=== PATIENT | female | born 1945 | race Caucasian/White ===

== ENCOUNTER 2019-08-06 14:02 | Outpatient (RCR) | payer MEDICARE, OTHER, SELFPAY | END 2019-09-04 00:01 | LOC: SPT 14:02 | PROVIDERS: Family Provider Family Medicine; Visit Provider Orthopaedic Surgery | DX: Z47.1 Aftercare following joint replacement surgery (principal); Z96.651 Presence of right artificial knee joint; M25.561 Pain in right knee; M25.661 Stiffness of right knee, not elsewhere classified | CPT/HCPCS: 97110 ×7; 97161 ==

== ENCOUNTER 2019-09-05 06:00 | Outpatient (RCR) | payer MEDICARE, OTHER, SELFPAY | END 2019-09-06 23:00 | disposition home or self-care (01) | LOC: SPT 06:00 | PROVIDERS: Family Provider Family Medicine; PCP Family Medicine; Visit Provider Orthopaedic Surgery | DX: Z47.1 Aftercare following joint replacement surgery (principal); Z96.651 Presence of right artificial knee joint | CPT/HCPCS: 97110 ==

== ENCOUNTER → 2019-11-15 11:38 | Outpatient (BNVA) | payer MEDICARE, OTHER, SELFPAY | PROVIDERS: Family Provider Family Medicine; PCP Family Medicine; Visit Provider Orthopaedic Surgery | DX: M81.0 Age-related osteoporosis without current pathological fracture (principal); M47.816 Spondylosis without myelopathy or radiculopathy, lumbar region; M43.5X7 Other recurrent vertebral dislocation, lumbosacral region | CPT/HCPCS: 72100 ==

== ENCOUNTER 2019-11-26 12:27 | Outpatient (CLI) | payer MEDICARE, OTHER, SELFPAY ==
--- NOTE | 2019-11-26 13:00 | MR_ITS ---
WS: [id number] MRI LUMBAR SPINE NONCONTRAST TECHNIQUE: Sagittal T1, T2 and STIR imaging. Axial T1 and T2 imaging. CLINICAL INFORMATION: lumbar radiculopathy COMPARISON: None. FINDINGS: Mild lumbar curve. No acute compression. Grade 1 anterolisthesis L5 on S1 measuring 8 mm chronic spon dylolysis. Mild disc bulging lower thoracic spine. L1-L2: Mild disc bulging with slight effacement of ventral thecal sac. Mild facet arthropathy. Mild c entral canal stenosis. Mild right and no significant left foraminal narrowing. L2-L3: Disc osteophyte complex with endplate ridging. Moderate central canal stenosis. Moderate facet arthropathy. Moderate to severe bilateral bony foraminal narrowing. L3-L4: Mild disc bulging with osteophytic ridging. Moderate to severe central canal stenosis. Advance d facet arthropathy. Edema in the facets. Moderate left and mild right foraminal narrowing. L4-L5: Disc osteophyte complex endplate ridging. Moderate central canal stenosis. Impingement on the subarticular recess bilaterally. Moderate bilateral foraminal narrowing. Moderate to advanced facet a rthropathy. L5-S1: Grade 1 anterolisthesis L5 on S1 measuring 8 mm with chronic spondylolysis. Impingement on the right S1 nerve root. Mild to moderate central canal stenosis. Moderate to severe bilateral foraminal narrowing. Visualized pelvic bony structures: Normal. Paravertebral soft tissues: Normal. MR/MR lumbar spine wo con* [id number] IMPRESSION: 1. Grade 1 anterolisthesis L5 on S1 with chronic spondylolysis. Moderate to se lluvia bilateral foraminal narrowing at this level. 2. Moderate central canal stenosis L2-L3 and in moderate to severe L3-L4 due t o disc osteophyte complexes with moderate to advanced facet arthropathy. 3. Moderate central canal stenosis L4-5 with impingement on the subarticular r ecess bilaterally 4. Multilevel bony foraminal narrowing worse at left L3-4, bilateral L4-5, and bilateral L5-S1. 5. Advanced facet arthropathy L3-4 and L4-L5.
== END 2019-11-26 12:28 | disposition home or self-care (01) ==
LOC: RADSHAW 12:30
PROVIDERS: Family Provider Family Medicine; PCP Family Medicine; Visit Provider Orthopaedic Surgery
DX: M54.16 Radiculopathy, lumbar region (principal); M48.07 Spinal stenosis, lumbosacral region; M48.061 Spinal stenosis, lumbar region without neurogenic claudication
CPT/HCPCS: 72148

== ENCOUNTER → 2022-03-29 09:04 | Outpatient (BNVA) | payer MEDICARE, OTHER, SELFPAY | PROVIDERS: Family Provider Family Medicine; PCP Family Medicine; Visit Provider Family Medicine | DX: J32.9 Chronic sinusitis, unspecified (principal); E11.9 Type 2 diabetes mellitus without complications; I10 Essential (primary) hypertension | CPT/HCPCS: 80053; 80061; 83036 ==

== ENCOUNTER → 2022-07-01 10:24 | Outpatient (BNVA) | payer MEDICARE, OTHER, SELFPAY | PROVIDERS: Family Provider Family Medicine; PCP Family Medicine; Visit Provider Family Medicine | DX: I10 Essential (primary) hypertension (principal); E11.9 Type 2 diabetes mellitus without complications; E78.5 Hyperlipidemia, unspecified | CPT/HCPCS: 80053; 80061; 83036 ==

== ENCOUNTER → 2022-10-11 09:21 | Outpatient (BNVA) | payer MEDICARE, SELFPAY | PROVIDERS: Family Provider Family Medicine; PCP Family Medicine; Visit Provider Family Medicine | DX: E11.9 Type 2 diabetes mellitus without complications (principal); E78.5 Hyperlipidemia, unspecified; I10 Essential (primary) hypertension | CPT/HCPCS: 80053; 80061; 83036 ==

== ENCOUNTER → 2023-01-06 09:27 | Outpatient (BNVA) | payer MEDICARE, SELFPAY | PROVIDERS: Family Provider Family Medicine; PCP Family Medicine; Visit Provider Family Medicine | DX: E78.5 Hyperlipidemia, unspecified (principal); I10 Essential (primary) hypertension; E11.9 Type 2 diabetes mellitus without complications | CPT/HCPCS: 80053; 80061; 83036 ==

== ENCOUNTER → 2023-01-13 09:19 | Outpatient (BNVA) | payer MEDICARE, SELFPAY | PROVIDERS: Family Provider Family Medicine; PCP Family Medicine; Visit Provider Family Medicine | DX: E11.9 Type 2 diabetes mellitus without complications (principal); E78.5 Hyperlipidemia, unspecified; I10 Essential (primary) hypertension | CPT/HCPCS: 80061; 83036; 83721 ==

== ENCOUNTER → 2023-04-11 16:06 | Outpatient (BNVA) | payer MEDICARE, SELFPAY | PROVIDERS: Family Provider Family Medicine; PCP Family Medicine; Visit Provider Family Medicine | DX: E78.5 Hyperlipidemia, unspecified (principal); I10 Essential (primary) hypertension; E11.9 Type 2 diabetes mellitus without complications | CPT/HCPCS: 80053; 80061; 83036 ==

== ENCOUNTER → 2023-07-01 08:19 | Outpatient (BNVA) | payer MEDICARE, SELFPAY | PROVIDERS: Family Provider Family Medicine; PCP Family Medicine; Visit Provider Family Medicine | DX: E11.9 Type 2 diabetes mellitus without complications (principal); E78.5 Hyperlipidemia, unspecified; I10 Essential (primary) hypertension | CPT/HCPCS: 80053; 80061; 83036 ==

== ENCOUNTER → 2023-10-17 08:27 | Outpatient (BNVA) | payer MEDICARE, SELFPAY | PROVIDERS: Family Provider Family Medicine; PCP Family Medicine; Visit Provider Family Medicine | DX: E78.5 Hyperlipidemia, unspecified (principal); I10 Essential (primary) hypertension; E11.9 Type 2 diabetes mellitus without complications | CPT/HCPCS: 83036 ==

== ENCOUNTER → 2023-10-21 10:27 | Outpatient (BNVA) | payer MEDICARE, SELFPAY | PROVIDERS: Family Provider Family Medicine; PCP Family Medicine; Visit Provider Internal Medicine | DX: E11.9 Type 2 diabetes mellitus without complications (principal); E78.2 Mixed hyperlipidemia; Z79.4 Long term (current) use of insulin; Z79.84 Long term (current) use of oral hypoglycemic drugs | CPT/HCPCS: 99204 ==

== ENCOUNTER → 2024-01-16 09:38 | Outpatient (BNVA) | payer MEDICARE, SELFPAY | PROVIDERS: Family Provider Family Medicine; PCP Family Medicine; Visit Provider Family Medicine | DX: E11.9 Type 2 diabetes mellitus without complications (principal); E78.2 Mixed hyperlipidemia | CPT/HCPCS: 80053; 80061; 82043; 83036 ==

== ENCOUNTER → 2024-01-18 11:25 | Outpatient (BNVA) | payer MEDICARE, SELFPAY | PROVIDERS: Family Provider Family Medicine; PCP Family Medicine; Visit Provider Internal Medicine | DX: E11.9 Type 2 diabetes mellitus without complications (principal); E78.2 Mixed hyperlipidemia; Z79.4 Long term (current) use of insulin; Z79.84 Long term (current) use of oral hypoglycemic drugs | CPT/HCPCS: 99214 ==

== ENCOUNTER → 2024-04-03 12:10 | Outpatient (BNVA) | payer MEDICARE, SELFPAY | PROVIDERS: Family Provider Family Medicine; PCP Family Medicine; Visit Provider Internal Medicine | DX: E11.9 Type 2 diabetes mellitus without complications (principal); E78.2 Mixed hyperlipidemia; Z79.4 Long term (current) use of insulin | CPT/HCPCS: 99214 ==

== ENCOUNTER → 2024-07-25 10:00 | Outpatient (BNVA) | payer MEDICARE, SELFPAY | PROVIDERS: Family Provider Family Medicine; PCP Family Medicine; Visit Provider Family Medicine | DX: E11.9 Type 2 diabetes mellitus without complications (principal); E78.2 Mixed hyperlipidemia | CPT/HCPCS: 80053; 80061; 82043; 83036 ==

== ENCOUNTER → 2024-08-03 11:28 | Outpatient (BNVA) | payer MEDICARE, SELFPAY | PROVIDERS: Family Provider Family Medicine; PCP Family Medicine; Visit Provider Internal Medicine | DX: E11.9 Type 2 diabetes mellitus without complications (principal); E78.2 Mixed hyperlipidemia; Z79.4 Long term (current) use of insulin | CPT/HCPCS: 99214 ==

== ENCOUNTER → 2024-10-22 09:12 | Outpatient (BNVA) | payer MEDICARE, SELFPAY | PROVIDERS: Family Provider Family Medicine; PCP Family Medicine; Visit Provider Family Medicine | DX: E11.9 Type 2 diabetes mellitus without complications (principal) | CPT/HCPCS: 80053; 80061; 82043; 83036 ==

== ENCOUNTER → 2024-10-30 10:25 | Outpatient (BNVA) | payer MEDICARE, SELFPAY | PROVIDERS: Family Provider Family Medicine; PCP Family Medicine; Visit Provider Internal Medicine | DX: E11.9 Type 2 diabetes mellitus without complications (principal); E78.2 Mixed hyperlipidemia | CPT/HCPCS: 99214 ==

== ENCOUNTER → 2025-01-23 08:57 | Outpatient (BNVA) | payer MEDICARE, SELFPAY | PROVIDERS: Family Provider Family Medicine; PCP Family Medicine; Visit Provider Family Medicine | DX: E11.9 Type 2 diabetes mellitus without complications (principal) | CPT/HCPCS: 80053; 80061; 82043; 83036 ==

== ENCOUNTER → 2025-01-29 09:30 | Outpatient (BNVA) | payer MEDICARE, SELFPAY | PROVIDERS: Family Provider Family Medicine; PCP Family Medicine; Visit Provider Internal Medicine | DX: E11.9 Type 2 diabetes mellitus without complications (principal); E78.2 Mixed hyperlipidemia | CPT/HCPCS: 99214 ==

== ENCOUNTER 2025-04-21 01:14 | Emergency (ER) | payer MEDICARE, SELFPAY ==
[2025-04-21 01:18] VITALS: BP 138/61; PULSE 75; RESP 18; TEMP 39.5; O2SAT 91; BMI 29.2
--- OUTSIDE RECORDS SUMMARY | 2025-04-21 01:24 | XMS_ITS | Encounter Summary ---
Author Organization [facility] Address [address] [place] [address] Care Team Providers Care Rhythmic Gymnastics Coach Name Role Phone Unavailable Primary Care Provider Unavailabl e Encounter Details Date Type Department Care Team (Latest Contact Info) Description 09/13/2002 Outpatient Historical [facility] [address] [facility] [address] [place] [address] Sho Thayer MD NO ADDRESS ON FILE LUMP OR MASS IN BREAST (Primary Dx) Social History Tobacco Use Types Packs/Day Years Used Date Smoking Tobacco: Never Assessed Comments Unknown Sex and Gender Information Value Date Recorded Sex Assigned at Not on file 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
--- OUTSIDE RECORDS SUMMARY | 2025-04-21 01:24 | XMS_ITS | Encounter Summary ---
Author Organization [facility] Address [address] [place] [address] Care Team Providers Care Doll Eye Setter Name Role Phone Unavailable Primary Care Provider Unavailabl e Encounter Details Date Type Department Care Team (Late st Contact Info) Description 05/07/1999 Outpatient Historical [facility] [address] [facility] [address] [place] [address] Bhakti Bradford MD NO ADDRESS ON FILE Family history of malignant neoplasm of breast (Primary Dx) Social History Tobacco Use Types Packs/Day Years Used Date Smoking Tobacco: Never Assessed Comments Unknown Sex and Gender Information Value Date Recorded Sex Assigned at Not on file 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
--- OUTSIDE RECORDS SUMMARY | 2025-04-21 01:24 | XMS_ITS | Clinical Summary ---
Author Organization [facility] Address [address] [place] [address] Care Team Providers Care News Agent Name Role Phone Unavailable Primary Care Provider Unavailabl e Immunizations Immunization Administration Dates Next Due (TDVAX)(7 YRS UP) TETANUS AN D DIPHTHERIA TOXOIDS, ADSORBED (2 LF OF TETANUS TOXOID AND 2 LF OF DIPHTHERIA TOXOID), 0.5ML (PF), IM 03/31/2004 Hepatitis A Vaccine 02/04/2004,12/31/2003 Social History Tobacco Use Types Packs/Day Years Used Date Smoking Tobacco: Never Assessed Comments Unknown Sex and Gender Information Value Date Recorded Sex Assigned at Not on file 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
--- OUTSIDE RECORDS SUMMARY | 2025-04-21 01:24 | XMS_ITS | Encounter Summary ---
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
--- OUTSIDE RECORDS SUMMARY | 2025-04-21 01:24 | XMS_ITS | Encounter Summary ---
Author Organization [facility] Address [address] [place] [address] Care Team Providers Care Asphalt Paving Superintendent Name Role Phone Unavailable Primary Care Provider Unavailabl e Encounter Details Date Type Department Care Team (Late st Contact Info) Description 01/10/2001 Outpatient Historical [facility] Cardiology [facility] [address] [place] [address] Social History Tobacco Use Types Packs/Day Years Used Date Smoking Tobacco: Never Assessed Comments Unknown Sex and Gender Information Value Date Recorded Sex Assigned at Not on file 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
--- OUTSIDE RECORDS SUMMARY | 2025-04-21 01:24 | XMS_ITS | Encounter Summary ---
Author [facility] Address [address] [place] [address] Care Team Providers Care Neighborhood Coordinator Name Role Phone Unavailable Primary Care Provider Unavailabl e Encounter Details Date Type Department Care Team (Latest Contact Info) Description 09/13/2002 Outpatient Historical [facility], NO ADDRESS ON FILE LUMP OR MASS IN BREAST (Primary Dx) Social History Tobacco Use Types Packs/Day Years Used Date Smoking Tobacco: Never Assessed Comments Unknown Sex and Gender Information Value Date Recorded Sex Assigned at Not on file 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
--- NOTE | 2025-04-21 01:38 | XRR_ITS ---
PROCEDURE INFORMATION: Exam: XR Chest Exam date and time: 04/21/2025 1:44 AM Age: 80 years old Clinical indication: High grade fever; Additional info: Congestion TECHNIQUE: Imaging protocol: Radiologic exam of the chest. Views: 1 view. COMPARISON: CR XR chest 2V* [id number] 07/05/2019 11:24 AM FINDINGS: Lungs: Questionable focal round airspace opacity in the right hilar region, measuring up to 1.7 cm. No large focal consolidation to suggest overlying pneumonia. Pleural spaces: No large pleural effusion. No distinct pneumothorax. Heart/Mediastinum: Cardiomediastinal silhouette is midline and normal in size. Bones/joints: No distinct acute osseous findings. XR/XR chest 1V portable [id number] IMPRESSION: 1. Questionable focal round airspace opacity in the right hilar region, measuring up to 1.7 cm. This is likely artifactual, representing end on vessels. A small mass could have a similar appearance. Consider further evaluation with CT chest. 2. No large focal consolidation to suggest overlying pneumonia.
[2025-04-21 02:23] LABS: Hematocrit 49.9 % (36-47); Hemoglobin 15.90 g/dL (11.27-16.99); Mean Corpuscular HGB Conc 31.9 g/dL (30-55); Mean Corpuscular Hemoglobin 28.3 pg (27-33); Mean Corpuscular Volume 88.8 fl (85-98); Nucleated Red Blood Cells % 0 %; Platelet Count 150 10^3/cmm (157-399); Red Blood Count 5.62 10^6/uL (3.85-5.65); White Blood Count 13.41 10^3/uL (3.29-11.43)
[2025-04-21 02:35] LABS: Alanine Aminotransferase 39 U/L (0-33); Albumin Level 4.6 g/dL (3.5-5.2); Alkaline Phosphatase 67 U/L (35-105); Anion Gap 18.4 (5-19); Aspartate Amino Transferase 38 U/L (0-32); Blood Urea Nitrogen 19 mg/dL (8-23); Calcium 9.2 mg/dL (8.5-10.5); Carbon Dioxide 22 mmol/L (22-29); Chloride 96 mmol/L (98-107); Creatinine Clr Calc Pharmacy 42.9058; Globulin 3.5 g/dL (1.3-4.6); Glucose 246 mg/dL (65-115); Osmolality Calculated 284 mOsm/kg (285-295); Potassium 4.4 mmol/L (3.5-5.1); Sodium 132 mmol/L (136-145); Total Protein 8.1 g/dL (6.6-8.7)
[2025-04-21 02:36] LABS: Lactic Sepsis W/Reflex 1.9 mmol/L (0.5-2.2)
--- NOTE | 2025-04-21 02:37 | CTR_ITS ---
PROCEDURE INFORMATION: Exam: CT Head Without Contrast Exam date and time: 04/21/2025 2:45 AM Age: 80 years old Clinical indication: Dizziness and fever; Dizziness with fever; Additional info: Fever, dizzy TECHNIQUE: Imaging protocol: Computed tomography of the head without contrast. Radiation optimization: All CT scans at this facility use at least one of these dose optimization techniques: automated exposure control; mA and/or kV adjustment per patient size (includes targeted exams where dose is matched to clinical indication); or iterative reconstruction. COMPARISON: No relevant prior studies available. RADIATION DOSE METRICS: Total DLP (mGy-cm): 1819.01 FINDINGS: Brain: No evidence of acute intracranial hemorrhage. No midline shift. Normal differentiation of fitzgerald-white matter. Cerebral ventricles: Ventricles are normal in caliber. Paranasal sinuses: Mild mucosal thickening of the paranasal sinuses. Mastoid air cells: Mastoid air cells are clear. Bones: No acute osseous findings. Soft tissues: Visualized superficial soft tissues are within normal limits. Visualized superficial soft tissues are within normal limits. CT/CT head wo con* [id number] IMPRESSION: No acute intracranial findings.
[2025-04-21] MEDS: cefTRIAXone 1,000 mg SDV 1000 MG IVP (03:00)
--- NOTE | 2025-04-21 03:46 | CTR_ITS ---
PROCEDURE INFORMATION: Exam: CT Chest With Contrast; Diagnostic Exam date and time: 04/21/2025 3:54 AM Age: 80 years old Clinical indication: Abnormal findings; Abnormal lab test; Elevated liver enzymes and elevated wbc; Other: N/a; Fever and shortness of breath; SOB and fever with elevated wbc, bilirubin, and lfts. ; Additional info: Fever, AMS, SOB TECHNIQUE: Imaging protocol: Diagnostic computed tomography of the chest with contrast. Radiation optimization: All CT scans at this facility use at least one of these dose optimization techniques: automated exposure control; mA and/or kV adjustment per patient size (includes targeted exams where dose is matched to clinical indication); or iterative reconstruction. Contrast material: OMNI 350; Contrast volume: 100 ml; Contrast route: INTRAVENOUS (IV); COMPARISON: CR (CHEST, ) 04/21/2025 1:44 AM RADIATION DOSE METRICS: Total DLP (mGy-cm): 963.79 FINDINGS: Thyroid: Partially imaged thyroid is normal in appearance. Lungs: No focal consolidation. No suspicious pulmonary nodules or masses. Pleural spaces: No pleural effusion. No pneumothorax. Heart: Calcifications of the mitral valve. Heart is normal in size. No pericardial effusion. Lymph nodes: No distinct pathologically enlarged lymphadenopathy. Vasculature: Minimal scattered calcific atheromatous disease of the thoracic aorta. Bones/joints: Multilevel spondylosis. No distinct acute osseous fractures. Soft tissues: Visualized superficial soft tissues are within normal limits. 1.7 cm cutaneous/subcutaneous sebaceous cyst located at the posterior upper back just right of midline. PROCEDURE INFORMATION: Exam: CT Abdomen And Pelvis With Contrast Exam date and time: 04/21/2025 3:54 AM Age: 80 years old Clinical indication: Abnormal findings; Abnormal lab test; Elevated liver enzymes and elevated wbc; Other: N/a; Fever and shortness of breath; SOB and fever with elevated wbc, bilirubin, and lfts. ; Additional info: Fever, AMS, SOB TECHNIQUE: Imaging protocol: Computed tomography of the abdomen and pelvis with contrast. Radiation optimization: All CT scans at this facility use at least one of these dose optimization techniques: automated exposure control; mA and/or kV adjustment per patient size (includes targeted exams where dose is matched to clinical indication); or iterative reconstruction. Contrast material: OMNI 350; Contrast volume: 100 ml; Contrast route: INTRAVENOUS (IV); COMPARISON: CR (CHEST, ) 04/21/2025 1:44 AM RADIATION DOSE METRICS: Total DLP (mGy-cm): 963.79 FINDINGS: Liver: Subcentimeter hypoattenuating lesion in the posterior right liver, too small to further characterize. No suspicious hepatic masses. Gallbladder and biliary ducts: Gallbladder is not visualized and is presumed absent. No biliary ductal dilation. Pancreas: Moderate to severe fatty atrophy of the pancreas. No pancreatic ductal dilation. Spleen: Multiples splenic cysts measuring up to 1.8 cm. Multiple punctate calcified granulomas in the spleen. Adrenal glands: The adrenal glands are unremarkable. Kidneys and ureters: Kidneys are normal. No hydronephrosis or nephrolithiasis. Stomach and bowel: No evidence of bowel obstruction. Appendix: The appendix is not distinctly identified. There are no obvious secondary signs of acute appendicitis. Intraperitoneal space: No significant free fluid in the abdomen or pelvis. Vasculature: [id number] scattered calcific atheromatous disease of the abdominal aorta and its major branches. No abdominal aortic aneurysm. Lymph nodes: No distinct pathologically enlarged lymphadenopathy. Urinary bladder: Urinary bladder is within normal limits. Reproductive: Visualized reproductive structures are within normal limits. Bones/joints: Multilevel spondylosis. Chronic grade 1 anterolisthesis of L5 on S1 with apparent fusion of L5 and S1. Multilevel lower lumbar facet arthrosis. No distinct acute osseous fractures. Soft tissues: Multiple hernial mesh anchors present along the right upper quadrant abdominal wall. Multiple small fat containing paraumbilical hernias. CT/CT chest abdpel w/*[id number] IMPRESSION: 1. No acute pathologic findings of the chest. 2. No suspicious pulmonary nodules or masses. IMPRESSION: 1. Subcentimeter hypoattenuating lesion in the posterior right liver, too small to further characterize. No suspicious hepatic masses. 2. Gallbladder is not visualized and is presumed absent. No biliary ductal dilation. 3. Moderate to severe fatty atrophy of the pancreas. No pancreatic ductal dilation.
[2025-04-21] MEDS: iohexol 350 mg/mL 500 mL Btl (per mL) IV (03:58)
--- NOTE | 2025-04-21 04:04 | W.ED.WEAKNES ---
HPI - Weakness General: Chief complaint: Weakness Stated complaint: ear infection,dizzy Time Seen by Provider: 04/21/25 01:56 History of Present Illness: This 80-year-old female presents with a one-week history of fever and generalized fatigue. The patient reports not feeling like herself and experiencing significant tiredness. She has been complaining of ear pain, though denies current ear discomfort at the time of examination. The patient was previously evaluated at urgent care during this illness episode, where she was prescribed medication for dizziness but was not started on antibiotics. She was not febrile during that initial urgent care visit. The fever was first noted today (Tuesday), though possibly beginning Tuesday. She denies recent sick contacts, cough, nausea, vomiting, or diarrhea. The patient reports chronic urinary incontinence, which is her baseline. She denies confusion or altered mental status, though family notes increased somnolence. She denies dysuria or abdominal pain. Related Data Home Medications ?Medication ?Instructions ?Recorded ?Confirmed aspirin 81 mg tablet,delayed 81 mg PO DAILY 03/24/22 02/06/25 release (Adult Low Dose Aspirin) Previous Rx's ?Medication ?Instructions ?Recorded scopolamine base 1 mg over 3 days 1 patch transdermal Q3D PRN nausea 10/27/23 transdermal patch and vomiting #4 ea blood-glucose,laser beam cutter,cont #1 ea 02/01/24 (FreeStyle Cira 3 [place]) pravastatin 40 mg tablet 40 mg PO DAILY #90 tabs 05/31/24 amlodipine 5 mg tablet 5 mg PO DAILY #30 tabs 06/18/24 acarbose 100 mg tablet See Rx Instructions .Route 06/29/24 .COMPLEX #90 tabs celecoxib 100 mg capsule See Rx Instructions .Route 07/04/24 .COMPLEX #90 caps blood-glucose sensor (FreeStyle #2 kits 10/30/24 Cira 3 Sensor device) lisinopril 10 mg tablet See Rx Instructions .Route 12/17/24 .COMPLEX #90 tabs acarbose 25 mg tablet 25 mg PO TID 30 days #90 tabs 02/06/25 ciprofloxacin HCl 250 mg tablet 250 mg PO BID #14 tabs 02/06/25 insulin glargine 100 unit/mL (3 25 unit (0.25 mL) SUBCUT DAILY #15 02/06/25 mL) subcutaneous pen (Lantus mL Solostar U-100 Insulin) alprazolam 0.25 mg tablet 0.25 mg PO BID #60 tabs 03/26/25 doxycycline hyclate 100 mg tablet 100 mg PO BID 14 days #28 tabs 04/21/25 Allergies Allergy/AdvReac Type Severity Reaction Status Date / Time amoxicillin Allergy Mild rash Verified 01/29/25 07:38 diphenhydramine (From Allergy Unknown Verified 01/29/25 07:38 Benadryl) Penicillins Allergy Unknown Verified 01/29/25 07:38 azithromycin AdvReac Mild diarrhea Verified 01/29/25 07:38 Review of Systems Narrative: Positive for fever, fatigue, ear pain (resolved), and chronic urinary incontinence Negative for cough, nausea, vomiting, diarrhea, dysuria, abdominal pain, and confusion PFS ED PFSH: Medical History Hyperlipidemia Hypertension Diabetes mellitus Social History Smoking and tobacco/nicotine status: unknown if used tobacco/nicotine Physical Exam Const: COMMON NORMALS: no acute distress GENERAL APPEARANCE: cooperative, ill appearing (mildly) and frail appearing HENMT: COMMON NORMALS: normocephalic, atraumatic and Normal external nose present HEAD & SCALP: normocephalic and atraumatic FACE & SINUS: normal facial exam and face symmetric NOSE: Normal external nose present Eye: COMMON NORMALS: Equal, round and reactive pupils present and EOMs intact bilaterally PUPIL: Yes Equal, round and reactive pupils present Neck/C-Spine: GENERAL: Yes trachea midline Chest: CHEST: Yes Symmetrical chest wall rise Resp: COMMON NORMALS: normal respiratory effort, No retractions, No use of accessory muscles and clear to auscultation bilaterally AUSCULTATION: clear to auscultation bilaterally Cardio: COMMON NORMALS: regular rate and regular rhythm RATE: regular rate RHYTHM: regular rhythm GI: COMMON NORMALS: Normal to inspection, nondistended, normoactive bowel sounds present Extremity: COMMON NORMALS: no pedal edema Neuro: ALVINA COMA SCALE: document GCS findings [place] coma scale eye opening: Spontaneous [place] coma scale verbal response: Orientated Alvina coma scale motor response: Obey commands [place] coma scale total score: 15 SENSORY EXAM: Yes extremities (intact) Psych: COMMON NORMALS: speech normal SPEECH: Yes normal speech Skin: COMMON NORMALS: no rashes or lesions noted GENERAL SKIN EXAM: no rashes or lesions noted Course Vital Signs: Vital signs: Vital Signs Temperature 100.4 F H 04/21/25 04:14 Pulse Rate 77 04/21/25 06:55 Respiratory Rate 18 04/21/25 04:14 Blood Pressure 137/79 04/21/25 06:55 Pulse Oximetry 94 04/21/25 06:55 Oxygen Delivery Me thod Room Air 04/21/25 04:14 MDM - Weakness Medical Decision Making 1. Fever of unknown origin in elderly patient: - Administer antipyretic medication for symptomatic relief - Provide IV fluid hydration - Monitor clinical response 2. Fatigue and malaise: - Likely related to febrile illness - Supportive care 3. History of ear pain: - Otoscopic examination normal - No current intervention needed 4. Chest pain (ten days duration): - Head CT scan ordered for evaluation - Further workup pending imaging results 80-year-old patient with fever, unknown origin. She has minimal symptoms other than fatigue. Her white blood cell count is 13.4. platelet count 150. Liver enzymes are minimally elevated. Her sodium is 132, potassium 4.4. Chest x-ray is essentially negative. There is perihilar opacity at 1.7 cm that is likely artifactual. Head CT is negative, this was completed because of her dizziness complaint. CT of the chest abdomen and pelvis shows no evident cause of her fever, and no evifence of the nodule described on her CXR. On further interview of the patient, we did find that she had a tick bite last week associated with a rash. Tick fever might explain slight elevation in liver enzymes, mild low platelet count. She was given IV fluid and Rocephin here. She will be given Doxycycline as well and discharged home on Doxycycline. They know to return for any worsening of her symptoms despite treatment. Close outpatient follow up. Tick panel was sent Lab Data 04/21/25 02:13 04/21/25 02:13 Radiology Impressions Chest X-Ray 04/21/25 01:38 IMPRESSION: 1. Questionable focal round airspace opacity in the right hilar region, measuring up to 1.7 cm. This is likely artifactual, representing end on vessels. A small mass could have a similar appearance. Consider further evaluation with CT chest. 2. No large focal consolidation to suggest overlying pneumonia. Head CT 04/21/25 02:37 IMPRESSION: No acute intracranial findings. Chest/Abdomen/Pelvis CT 04/21/25 03:46 IMPRESSION: 1. No acute pathologic findings of the chest. 2. No suspicious pulmonary nodules or masses. IMPRESSION: 1. Subcentimeter hypoattenuating lesion in the posterior right liver, too small to further characterize. No suspicious hepatic masses. 2. Gallbladder is not visualized and is presumed absent. No biliary ductal dilation. 3. Moderate to severe fatty atrophy of the pancreas. No pancreatic ductal dilation. Laboratory Results WBC 13.41 10^3/uL (3.29-11.43) H 04/21/25 02:13 RBC 5.62 10^6/uL (3.85-5.65) 04/21/25 02:13 Hgb 15.90 g/dL (11.27-16.99) 04/21/25 02:13 Hct 49.9 % (36-47) H 04/21/25 02:13 MCV 88.8 fl (85-98) 04/21/25 02:13 MCH 28.3 pg (27-33) 04/21/25 02:13 MCHC 31.9 g/dL (30-55) 04/21/25 02:13 RDW 13.6 % (12.1-15.1) 04/21/25 02:13 Plt Count 150 10^3/cmm (157-399) L 04/21/25 02:13 MPV 11.4 fL (7.4-10.4) H 04/21/25 02:13 Neut % (Auto) 73.1 % 04/21/25 02:13 Lymph % (Auto) 18.6 % 04/21/25 02:13 Faulk % (Auto) 7.8 % 04/21/25 02:13 Eos % (Auto) 0.0 % 04/21/25 02:13 Baso % (Auto) 0.3 % 04/21/25 02:13 Neut # (Auto) 9.79 10^3/uL (1.8-7.7) H 04/21/25 02:13 Lymph # (Auto) 2.5 10^3/uL (0.8-4.8) 04/21/25 02:13 Faulk # (Auto) 1.1 10^3/uL (0.2-0.9) H 04/21/25 02:13 Eos # (Auto) 0.0 10^3/uL (0.0-0.8) 04/21/25 02:13 Baso # (Auto) 0.0 10^3/uL (0.0-0.1) 04/21/25 02:13 Nucleated RBC % (auto) 0 % 04/21/25 02:13 Nucleated RBCs # 0.0 /100WBC 04/21/25 02:13 Sodium 132 mmol/L (136-145) L 04/21/25 02:13 Potassium 4.4 mmol/L (3.5-5.1) 04/21/25 02:13 Chloride 96 mmol/L (98-107) L 04/21/25 02:13 Carbon Dioxide 22 mmol/L (22-29) 04/21/25 02:13 Anion Gap 18.4 (5-19) 04/21/25 02:13 BUN 19 mg/dL (8-23) 04/21/25 02:13 Creatinine 0.9 mg/dL (0.5-0.9) 04/21/25 02:13 GFR Calculation Not Reportable 04/21/25 02:13 Glucose 246 mg/dL (65-115) H 04/21/25 02:13 Calculated Osmolality 284 mOsm/kg (285-295) L 04/21/25 02:13 Lactic Acid 1.9 mmol/L (0.5-2.2) 04/21/25 02:13 Calcium 9.2 mg/dL (8.5-10.5) 04/21/25 02:13 Total Bilirubin 1.5 mg/dL (0.15-1.2) H 04/21/25 02:13 AST 38 U/L (0-32) H 04/21/25 02:13 ALT 39 U/L (0-33) H 04/21/25 02:13 Alkaline Phosphatase 67 U/L (35-105) 04/21/25 02:13 Total Protein 8.1 g/dL (6.6-8.7) 04/21/25 02:13 Albumin 4.6 g/dL (3.5-5.2) 04/21/25 02:13 Globulin 3.5 g/dL (1.3-4.6) 04/21/25 02:13 Urine Color Yellow (Yellow) 04/21/25 04:22 Urine Appearance Clear (CLEAR) 04/21/25 04:22 Urine pH 5.5 (5-7) 04/21/25 04:22 Ur Specific Stopover 1.057 (1.005-1.030) H 04/21/25 04:22 Urine Protein 1+ (Negative) A 04/21/25 04:22 Urine Glucose (UA) Negative (Normal) 04/21/25 04:22 Urine Ketones Negative (Negative) 04/21/25 04:22 Urine Blood Negative (Negative) 04/21/25 04:22 Urine Nitrate Negative (Negative) 04/21/25 04:22 Urine Bilirubin Negative (Negative) 04/21/25 04:22 Urine Urobilinogen 1.0 mg/dL (Negative) 04/21/25 04:22 Ur Leukocyte Esterase Negative (Negative) 04/21/25 04:22 Urine RBC None /hpf (0-2) 04/21/25 04:22 Urine WBC None /hpf (0-5) 04/21/25 04:22 Ur Squamous Epith Cells 3-5 /hpf (0-5) 04/21/25 04:22 Amorphous Sediment Not Reportable 04/21/25 04:22 Urine Bacteria None /hpf (NONE) 04/21/25 04:22 Influenza A (PCR) Negative (Negative) 04/21/25 04:02 Influenza Type B (PCR) Negative (Negative) 04/21/25 04:02 RSV (PCR) Negative (Negative) 04/21/25 04:02 SARS-CoV-2 (PCR) Negative (Negative) 04/21/25 04:02 All radiology interpretation(s) finalized by discharge Discharge Plan Discharge Patient Disposition: Home Clinical Impression: Fever of unknown origin Condition: Stable Prescriptions: New doxycycline hyclate 100 mg tablet 100 mg PO BID 14 Days Qty: 28 0RF No Action scopolamine base 1 mg over 3 days patch 3 day 1 patch transdermal Q3D PRN (Reason: nausea and vomiting) Qty: 4 0RF (DME) FreeStsmartclip Cira 3 Sensor Device See Rx Instructions .ROUTE .COMPLEX Qty: 2 3RF Dose Instruction: USE DIRECTED Rx Instructions: USE DIRECTED insulin glargine [Lantus Solostar U-100 Insulin] 100 unit/mL (3 mL) insulin pen 25 unit SUBCUT DAILY Qty: 15 11RF acarbose 25 mg tablet 25 mg PO TID 30 Days Qty: 90 11RF ciprofloxacin HCl 250 mg tablet 250 mg PO BID Qty: 14 0RF aspirin [Adult Low Dose Aspirin] 81 mg tablet,delayed release (DR/EC) 81 mg PO DAILY (DME) FreeStyle Cira 3 [place] [facility] See Rx Instructions .Route Qty: 1 0RF Rx Instructions: As directed pravastatin 40 mg tablet 40 mg PO DAILY Qty: 90 3RF amlodipine 5 mg tablet 5 mg PO DAILY Qty: 30 11RF acarbose 100 mg tablet See Rx Instructions .ROUTE .COMPLEX Qty: 90 0RF Dose Instruction: TAKE 1 TABLET BY MOUTH THREE TIMES DAILY, CONTINUING DOSE FROM 50 TO 100 Rx Instructions: TAKE 1 TABLET BY MOUTH THREE TIMES DAILY, CONTINUING DOSE FROM 50 TO 100 celecoxib 100 mg capsule See Rx Instructions .ROUTE .COMPLEX Qty: 90 3RF Dose Instruction: TAKE ONE CAPSULE BY MOUTH EVERY DAY Rx Instructions: TAKE ONE CAPSULE BY MOUTH EVERY DAY lisinopril 10 mg tablet See Rx Instructions .ROUTE .COMPLEX Qty: 90 3RF Dose Instruction: TAKE 1 TABLET BY MOUTH DAILY Rx Instructions: TAKE 1 TABLET BY MOUTH DAILY alprazolam 0.25 mg tablet 0.25 mg PO BID Qty: 60 5RF Discharge Orders: Discharge ED (Routine); Ordered 04/21/25 Ordered By: Gabino Nunn Referrals: Dre Valladares MD [Primary Care Provider, Family Practice] - 1-3 days Patient Instructions: Fever in Adults (ED), Opioid Safety, Pain Management, Patient Portal & Gloria Instructions Activity Restrictions/Additional Instructions: Watch temperatures closely, 3 times daily. Treat accordingly with Tylenol or anti-inflammatories. Stay hydrated. Antibiotic as directed. Return for continued fever despite 3-4 doses of antibiotics, worsening mental status despite treatment, weakness, any other concerning symptoms. Call your doctor tomorrow morning for a follow-up appointment this week. Print Language: Bulgarian Coding Level of Care Code ED Workday Financials Consultant for Mil King
[2025-04-21 04:14] VITALS: PULSE 69; RESP 18; TEMP 38; O2SAT 93
[2025-04-21 04:17] VITALS: BP 136/85
[2025-04-21 05:24] LABS: Glucose Urine UA Negative (Normal); Nitrate Urine Negative (Negative)
[2025-04-21 05:42] LABS: Specific Gravity, Urine 1.057 (1.005-1.030)
[2025-04-21 05:45] LABS: Add Urine Microscopic? YES; UA Manual Slide Review YES; UA Slide Review UA Slide Review Perf
[2025-04-21 05:56] LABS: Respiratory Syncytial Virus Ce NEGATIVE (Negative); SARS-CoV-2 PCR NEGATIVE (Negative)
[2025-04-21 06:55] VITALS: BP 137/79; PULSE 77; O2SAT 94
[2025-04-25 18:39] LABS: RMSF IGG NOT DETECTED; RMSF IGM NOT DETECTED
== END 2025-04-21 07:01 | disposition home or self-care (01) ==
PROVIDERS: Emergency Provider Emergency Medicine; Family Provider Family Medicine; PCP Family Medicine
DX: R50.9 Fever, unspecified (principal); Z11.52 Encounter for screening for COVID-19; Z79.4 Long term (current) use of insulin; Z79.82 Long term (current) use of aspirin; E78.5 Hyperlipidemia, unspecified; E11.9 Type 2 diabetes mellitus without complications; I10 Essential (primary) hypertension
CPT/HCPCS: 36415; 70450; 71045; 71260; 74177; 80053; 81001; 83605; 85025; 86618; 86666; 86757; 87637; 96361; 96374; 96375; 99285; J0696; J1885; J7030; J9999

== ENCOUNTER → 2025-04-25 13:57 | Outpatient (BNVA) | payer MEDICARE, SELFPAY | PROVIDERS: Family Provider Family Medicine; PCP Family Medicine; Visit Provider Family Medicine | DX: R50.9 Fever, unspecified (principal) | CPT/HCPCS: 80053; 85025 ==

== ENCOUNTER → 2025-04-30 09:21 | Outpatient (BNVA) | payer MEDICARE, SELFPAY | PROVIDERS: Family Provider Family Medicine; PCP Family Medicine; Visit Provider Internal Medicine | DX: E11.9 Type 2 diabetes mellitus without complications (principal); E78.2 Mixed hyperlipidemia | CPT/HCPCS: 99214 ==

== ENCOUNTER → 2025-05-09 14:17 | Outpatient (BNVA) | payer MEDICARE, SELFPAY | PROVIDERS: Family Provider Family Medicine; PCP Family Medicine; Visit Provider Family Medicine | DX: R50.9 Fever, unspecified (principal) | CPT/HCPCS: 80053; 85025 ==

== ENCOUNTER → 2025-05-27 14:05 | Outpatient (BNVA) | payer MEDICARE, SELFPAY | PROVIDERS: Family Provider Family Medicine; PCP Family Medicine; Visit Provider Family Medicine | DX: R30.0 Dysuria (principal); N39.0 Urinary tract infection, site not specified | CPT/HCPCS: 81000; 87086 ==

== ENCOUNTER → 2025-07-24 09:13 | Outpatient (BNVA) | payer MEDICARE, SELFPAY | PROVIDERS: Family Provider Family Medicine; PCP Family Medicine; Visit Provider Family Medicine | DX: E11.9 Type 2 diabetes mellitus without complications (principal); E78.2 Mixed hyperlipidemia | CPT/HCPCS: 80053; 80061; 82043; 83036; 83721 ==